=== PATIENT | female | born 1985 | race Caucasian/White ===

== ENCOUNTER 2017-02-22 09:50 | Emergency (ER) | payer OTHER, MEDICARE ==
--- NOTE | ~2017-02-22 | CT52 ---
[facility] A Service of [facility] RADIOLOGY TEXT RESULTS PATIENT: DARIA FERNANDEZ LOCATION: [facility] : 81 UNIT #: [id number] AGE: [address]: Carolin Suarez SEX: F ORDER DR: [id number] [facility] [address] [place], [place] [address] [id number] E MR#: [id number] #: [id number] NAME: DARIA FERNANDEZ : 1985 SEX: F STUDY DATE/TIME: 02/22/2017 10:08 UNIT: [facility] ROOM: STUDY DESCRIPTION: CT Cervical Spine Wo Cont Attending Physician: Carolin Suarez P.A.-C. Ordering Physician: Carolin Suarez P.A.-C. Primary Care Physician: [facility], MEDICAL IMAGING REPORT This report is preliminary unless electronic signature is present EXAM CT cervical spine without contrast 02/22/2017 HISTORY 31-year-old female with neck pain status post fall today. COMPARISON None. TECHNIQUE Helical scan performed through the cervical spine without IV contrast. Coronal and sagittal reformatted images. This CT exam was performed with one or more of the following radiation dose reduction techniques: automatic exposure control, adjustment of mA and/or kV according to patient size, and iterative reconstruction. FINDINGS Examination is significantly limited, secondary to patient body habitus. Allowing for this, no evidence of acute fracture or subluxation. Vertebral body heights and alignment are normally maintained. Prevertebral soft tissues are unremarkable. Atlantoaxial relationship is within normal limits. Cervicothoracic junction is unremarkable. No gross bony canal stenosis. Paravertebral soft tissues are unremarkable. Scanning through the lung apices is unremarkable. IMPRESSION Limited examination secondary to patient body habitus. Allowing for this, no acute cervical spine injury. Dictated by... Samir Carrillo M.D. [facility] A Service of [facility] RADIOLOGY TEXT RESULTS PATIENT: DARIA FERNANDEZ LOCATION: [facility] : 81 UNIT #: [id number] AGE: [address]: Carolin Suarez SEX: F ORDER DR: THIS IS AN ELECTRONICALLY VERIFIED REPORT Samir Carrillo M.D. at 02/22/2017 2:14 PM RANGEL/maría TD: 02/22/2017 12:28 JOB #: [id number] MEDICAL IMAGING REPORT Page 1 of 1 COPY
--- NOTE | ~2017-02-22 | CT71 ---
[facility] A Service [facility] RADIOLOGY TEXT RESULTS PATIENT: DARIA FERNANDEZ LOCATION: [facility] : 81 UNIT #: [id number] AGE: [address]: Carolin Suarez SEX: F ORDER DR: [id number] [facility] [address] [place], [place] [address] [id number] E MR#: [id number] Acc #: [id number] NAME: DARIA FERNANDEZ : 1985 SEX: F STUDY DATE/TIME: 02/22/2017 10:04 UNIT: [facility] ROOM: STUDY DESCRIPTION: CT Head Wo Contrast Attending Physician: Carolin Suarez P.A.-C. Ordering Physician: Carolin Suarez P.A.-C. Primary Care Physician: [facility], MEDICAL IMAGING REPORT This report is preliminary unless electronic signature is present EXAM CT head without contrast 02/22/2017 HISTORY 31-year-old female with head pain status post fall today. COMPARISON None. TECHNIQUE Routine unenhanced axial images performed through the brain. FINDINGS No hemorrhage, acute infarction, mass lesion, or abnormal extraaxial fluid collection. No midline shift or focal mass effect. Periventricular system normal in size and configuration. No acute bony abnormality. Visualized paranasal sinuses and mastoid air cells are clear. IMPRESSION No acute intracranial abnormality. Dictated by... Samir Carrillo M.D. THIS IS AN ELECTRONICALLY VERIFIED REPORT Samir Carrillo M.D. at 02/22/2017 2:14 PM RANGEL/maría TD: 02/22/2017 12:26 JOB #: [id number] [facility] A Service [facility] RADIOLOGY TEXT RESULTS PATIENT: DARIA FERNANDEZ LOCATION: [facility] : 81 UNIT #: [id number] AGE: [address]: Carolin Suarez SEX: F ORDER DR: MEDICAL IMAGING REPORT Page 1 of 1 COPY
== END 2017-02-22 11:45 | disposition home or self-care (01) ==
LOC: CED 09:50
DX: S06.0X0A Concussion without loss of consciousness, initial encounter (principal); F17.210 Nicotine dependence, cigarettes, uncomplicated; W18.39XA Other fall on same level, initial encounter
CPT/HCPCS: 70450; 72125; 84703; 99284